=== PATIENT | female | born 1945 | race Caucasian/White ===

== ENCOUNTER → 2018-04-07 09:17 | Outpatient (CLI) | payer MEDICARE, OTHER, SELFPAY ==
--- NOTE | 2018-04-07 | DI.MG.S_ITS ---
BILATERAL DIGITAL SCREENING MAMMOGRAM 3D/2D WITH CAD: 04/07/2018 CLINICAL: Routine screening. Comparison is made to exams dated: 02/05/2017 mammogram, 02/02/2016 mammogram, and 01/31/2015 mammogram - [facility]. The tissue of both breasts is heterogeneously dense. This may lower the sensitivity of mammography. Current study was also evaluated with a Computer Aided Detection (CAD) system. There are benign post operative findings in the right breast. There also are benign calcifications in the left breast. No significant masses, calcifications, or other findings are seen in either breast. There has been no significant interval change. IMPRESSION: There is no mammographic evidence of malignancy. A 1 year screening mammogram is recommended. This exam was interpreted at Station ID: [id number]. NOTE: For mammograms, a report in lay terms will be sent to the patient. Approximately 15% of breast malignancies will not be visualized mammographically. In the management of a palpable breast mass, a negative mammogram must not discourage biopsy of a clinically suspicious lesion. Electronically Signed By: Mich napoles/ani:04/07/2018 09:56:55 letter sent: Normal Exam ACR BI-RADS Category 2: Benign Finding(s) 3342F
== END ==
PROVIDERS: PCP Family Medicine; Visit Provider Family Medicine
DX: Z12.31 Encounter for screening mammogram for malignant neoplasm of breast (principal)
CPT/HCPCS: 77063; 77067

== ENCOUNTER → 2018-04-16 16:18 | Outpatient (CLI) | payer MEDICARE, OTHER, SELFPAY ==
--- NOTE | 2018-04-16 16:21 | DI.RAD.S_ITS ---
PROCEDURE: XR SHOULDER LT MIN 2V INDICATIONS: shoulder pain decrase rang of motion TECHNIQUE: 3 views of the shoulder were acquired. COMPARISON: [facility], , UP EXT WITH, 07/01/2011, 10:04. [facility], , SHOULDER INJECTION FOR MR/CT, 07/01/2011, 9:41. FINDINGS: Bones: No fractures or dislocations. No suspicious bony lesions. Mild acromioclavicular joint degeneration. Visualized ribs appear intact. Soft tissues: There is a soft tissue calcification underneath the acromion over humeral head. IMPRESSION: 1. Mild degenerative joint disease. 2. There is soft tissue calcification suggesting calcific tendinitis. Dictated by: Renny Blount M.D. on 04/16/2018 at 17:06 Approved by: Renny Blount M.D. on 04/16/2018 at 17:09
== END ==
PROVIDERS: PCP Family Medicine; Visit Provider Family Medicine
DX: M25.512 Pain in left shoulder (principal); M19.012 Primary osteoarthritis, left shoulder
CPT/HCPCS: 73030

== ENCOUNTER → 2018-07-31 07:23 | Outpatient (CLI) | payer MEDICARE, OTHER, SELFPAY ==
[2018-07-31 08:44] LABS: Add Manual Diff / Slide Review NO; Basophils Absolute Auto 0 /uL (0-100); Basophils Percent Auto 0.9 % (0-2); Eosinophils Absolute Auto 100 /uL (0-450); Eosinophils Percent Auto 2.4 % (2-4); Hematocrit 42.7 % (36-46); Hemoglobin 14.4 g/dL (12.0-16.0); Lymphocytes Absolute Auto 1600 /uL (1100-4500); Lymphocytes Percent Auto 33.3 % (25-40); Mean Corpuscular HGB Conc 33.7 % (30-36); Mean Corpuscular Hemoglobin 32.4 PG (26-34); Mean Corpuscular Volume 96.1 fL (80-100); Monocytes Absolute Auto 400 /uL (0-900); Monocytes Percent Auto 8.4 % (3-14); Neutrophils Absolute Auto 2700 /uL (1500-7000); Platelet Count 207 X10^3/uL (150-400); Red Blood Cell Count 4.45 X10^6/uL (4.0-5.2); Red Cell Distribution Width 12.9 % (11.6-14.8); White Blood Cell Count 4.9 X10^3/uL (4.5-11.0)
[2018-07-31 08:49] LABS: Alanine Aminotransferase 15 IU/L (9-52); Albumin 4.4 g/dL (3.5-5.0); Albumin Globulin Ratio 1.5 (1.0-2.8); Alkaline Phosphatase 75 U/L (38-126); Aspartate Aminotransferase 29 IU/L (14-36); BUN Creatinine Ratio 21.4 (6-22); Bilirubin Total 0.4 mg/dL (0.2-1.3); Blood Urea Nitrogen 15 mg/dL (7-17); Calcium 9.7 mg/dL (8.4-10.2); Carbon Dioxide 33 mmol/L (22-32); Chloride 102 mmol/L (98-107); Cholesterol 194 mg/dL (140-199); Estimated Glomerular Filt Rate > 60.0 mL/min (>60); Glucose 100 mg/dL (80-110); HDL Cholesterol 56 mg/dL (40-60); HEMOLYSIS < 15 (0-50); LDL Cholesterol Calculated 107 mg/dL (<100); Potassium 4.5 mmol/L (3.4-5.1); Sodium 141 mmol/L (137-145); Total Protein 7.4 g/dL (6.3-8.2); Triglycerides 153 mg/dL (35-150)
[2018-07-31 09:15] LABS: TSH w/ Reflex to FT4 2.48 uIU/mL (0.47-4.68)
== END ==
PROVIDERS: PCP Family Medicine; Visit Provider Nurse Practitioner
DX: Z00.00 Encounter for general adult medical examination without abnormal findings (principal)
CPT/HCPCS: 36415; 80053; 80061; 84443; 85025

== ENCOUNTER → 2018-12-05 13:30 | Outpatient (CLI) | payer MEDICARE, OTHER, SELFPAY ==
--- NOTE | 2018-12-05 | DI.MRI.S_ITS ---
PROCEDURE: MR KNEE LT WO CON INDICATIONS: osteoarthritis TECHNIQUE: Noncontrast sagittal PD fast spin echo and T2 fast spin echo with fat saturation, sagittal 3-D FLASH with fat saturation; coronal T1 spin echo and PD fast spin echo with fat saturation, and axial PD fast spin echo with fat saturation through the knee. COMPARISON: [facility], MR, KNEE WITHOUT CONTRAST, 08/23/2013, 10:47. [facility], CR, XR KNEE ARTHRITIC SERIES BI, 09/01/2018, 9:45. FINDINGS: Image quality: Excellent. Menisci: Mild ill-defined T2 signal elevation within the medial meniscal body is present, demonstrating no significant articular surface extension. The medial and lateral menisci demonstrate otherwise normal morphology and internal signal. The meniscal root ligaments appear intact. Cruciate ligaments: The anterior and posterior cruciate ligaments appear intact. Medial structures: The medial collateral ligament appears intact. Visualized portions of the pes anserinus tendons appear normal. No abnormal bursal fluid. Lateral structures: The lateral collateral ligament, long and short heads of the biceps femoris tendon appear intact. The popliteus tendon appears normal. Iliotibial band appears normal. Anterior structures: The quadriceps and patellar tendons appear intact. Lateral patellar subluxation is present. No femoral trochlear dysplasia or ventral trochlear prominence. Mild edema within the superolateral aspect of the infrapatellar fat pad. Bones and cartilage: No bone marrow contusions or fractures. Mild tricompartmental para-articular osteophyte formation. Articular surface irregularity involves the lateral patellar facet and lateral femoral trochlea, new since the prior examination. Severe articular cartilage loss overlies the mid weightbearing aspect of the medial femoral condyle. Moderate diffuse articular cartilage loss overlies the weightbearing aspect of the medial tibial plateau. Severe articular cartilage loss overlies the lateral patellar facet and lateral femoral trochlea. Joint space: There is a moderate knee joint effusion and a small Purvis's cyst. Multiple small intra-articular loose bodies, predominantly within the lateral compartment are present. There is a moderate proximal tibial-fibular joint effusion. Normal appearing synovial plicae are incidentally noted. IMPRESSION: 1. 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 New articular surface irregularity involving the lateral patellofemoral compartment. 2. Findings consistent with lateral patellofemoral friction syndrome the appropriate clinical setting. 3. No evidence of meniscal tear nor cruciate ligament injury. 4. Knee joint effusion and Purvis's cyst. Multiple small intra-articular loose bodies. Dictated by: Feliberto Ríos M.D. on 12/07/2018 at 14:50 Approved by: Feliberto Ríos M.D. on 12/07/2018 at 14:54
== END ==
PROVIDERS: PCP Family Medicine; Visit Provider Orthopaedic Surgery
DX: M17.12 Unilateral primary osteoarthritis, left knee (principal); M25.462 Effusion, left knee; M71.22 Synovial cyst of popliteal space [Baker], left knee; M23.42 Loose body in knee, left knee
CPT/HCPCS: 73721

== ENCOUNTER → 2019-05-05 10:39 | Outpatient (CLI) | payer MEDICARE, OTHER, SELFPAY ==
--- NOTE | 2019-05-05 | DI.MG.S_ITS ---
BILATERAL DIGITAL SCREENING MAMMOGRAM 3D/2D WITH CAD: 05/05/2019 CLINICAL: Routine screening. Comparison is made to exams dated: 04/07/2018 mammogram, 02/05/2017 mammogram, and 02/02/2016 mammogram - [facility]. The tissue of both breasts is heterogeneously dense. This may lower the sensitivity of mammography. Current study was also evaluated with a Computer Aided Detection (CAD) system. There are benign calcifications in the left breast. There also are benign post operative findings in the right breast. No significant masses, calcifications, or other findings are seen in either breast. There has been no significant interval change. IMPRESSION: There is no mammographic evidence of malignancy. A 1 year screening mammogram is recommended. This exam was interpreted at Station ID: [id number]. NOTE: For mammograms, a report in lay terms will be sent to the patient. Approximately 15% of breast malignancies will not be visualized mammographically. In the management of a palpable breast mass, a negative mammogram must not discourage biopsy of a clinically suspicious lesion. Electronically Signed By: Mich napoles/ani:05/05/2019 12:55:22 letter sent: Normal Exam ACR BI-RADS Category 2: Benign Finding(s) 3342F
== END ==
PROVIDERS: PCP Family Medicine; Referring Provider Nurse Practitioner; Visit Provider Family Medicine
DX: Z12.31 Encounter for screening mammogram for malignant neoplasm of breast (principal)
CPT/HCPCS: 77063; 77067

== ENCOUNTER → 2019-11-23 07:29 | Outpatient (CLI) | payer MEDICARE, OTHER, SELFPAY ==
[2019-11-23 09:07] LABS: Alanine Aminotransferase 15 IU/L (<35); Albumin 4.1 g/dL (3.5-5.0); Albumin Globulin Ratio 1.6 (1.0-2.8); Alkaline Phosphatase 81 U/L (38-126); Aspartate Aminotransferase 31 IU/L (14-36); BUN Creatinine Ratio 18.1 (6-22); Bilirubin Total 0.4 mg/dL (0.2-1.3); Blood Urea Nitrogen 13 mg/dL (7-17); Calcium 9.5 mg/dL (8.4-10.2); Carbon Dioxide 31 mmol/L (22-32); Chloride 103 mmol/L (98-107); Cholesterol 182 mg/dL (140-199); Estimated Glomerular Filt Rate > 60.0 mL/min (>60); Globulin 2.6 g/dL (1.7-4.1); Glucose 90 mg/dL (80-110); HDL Cholesterol 69 mg/dL (40-60); HEMOLYSIS < 15 (0-50); LDL Cholesterol Calculated 92 mg/dL (<100); Potassium 5.2 mmol/L (3.4-5.1); Sodium 137 mmol/L (137-145); Total Protein 6.7 g/dL (6.3-8.2); Triglycerides 105 mg/dL (35-150)
[2019-11-23 09:23] LABS: Free T4, Direct Thyroxine 0.84 ng/dL (0.78-2.19)
[2019-11-23 09:37] LABS: Thyroid Stimulating Hormone 2.61 uIU/mL (0.47-4.68)
[2019-11-24 08:43] LABS: Fecal Immunochemical Test Negative (Negative)
== END ==
PROVIDERS: PCP Family Medicine; Referring Provider Nurse Practitioner; Visit Provider Nurse Practitioner
DX: E78.5 Hyperlipidemia, unspecified (principal); F32.9 Major depressive disorder, single episode, unspecified; G47.00 Insomnia, unspecified; Z79.899 Other long term (current) drug therapy; Z12.11 Encounter for screening for malignant neoplasm of colon
CPT/HCPCS: 36415; 80053; 80061; 82274; 84439; 84443

== ENCOUNTER → 2019-11-30 09:29 | Outpatient (CLI) | payer MEDICARE, OTHER, SELFPAY | PROVIDERS: PCP Family Medicine; Referring Provider Nurse Practitioner; Visit Provider Nurse Practitioner | DX: M85.851 Other specified disorders of bone density and structure, right thigh (principal); Z78.0 Asymptomatic menopausal state; Z90.722 Acquired absence of ovaries, bilateral | CPT/HCPCS: 77080 ==

== ENCOUNTER → 2020-05-08 10:01 | Outpatient (CLI) | payer MEDICARE, OTHER, SELFPAY ==
--- NOTE | 2020-05-08 | DI.MG.S_ITS ---
BILATERAL DIGITAL SCREENING MAMMOGRAM 3D/2D WITH CAD: 05/08/2020 CLINICAL: Routine screening. Comparison is made to exams dated: 05/05/2019 mammogram, 04/07/2018 mammogram, and 02/05/2017 mammogram - [facility]. The tissue of both breasts is heterogeneously dense. This may lower the sensitivity of mammography. Current study was also evaluated with a Computer Aided Detection (CAD) system. There are benign calcifications in the left breast. There also are benign post operative findings in the right breast. No significant masses, calcifications, or other findings are seen in either breast. There has been no significant interval change. IMPRESSION: BENIGN There is no mammographic evidence of malignancy. A 1 year screening mammogram is recommended. This exam was interpreted at Station ID: [id number]. NOTE: For mammograms, a report in lay terms will be sent to the patient. Approximately 15% of breast malignancies will not be visualized mammographically. In the management of a palpable breast mass, a negative mammogram must not discourage biopsy of a clinically suspicious lesion. Electronically Signed By: Mich napoles/ani:05/08/2020 11:04:53 copy to: WOOD [facility]AN letter sent: Normal Exam ACR BI-RADS Category 2: Benign Finding(s) 3342F
== END ==
PROVIDERS: PCP Family Medicine; Referring Provider Family Medicine; Visit Provider Family Medicine
DX: Z12.31 Encounter for screening mammogram for malignant neoplasm of breast (principal)
CPT/HCPCS: 77063; 77067

== ENCOUNTER → 2021-05-11 08:09 | Outpatient (CLI) | payer MEDICARE, OTHER, SELFPAY ==
--- NOTE | 2021-05-11 | DI.MG.S_ITS ---
BILATERAL DIGITAL SCREENING MAMMOGRAM 3D/2D WITH CAD: 05/11/2021 CLINICAL: Routine screening. Comparison is made to exams dated: 05/08/2020 mammogram, 05/05/2019 mammogram, and 04/07/2018 mammogram - [facility]. The tissue of both breasts is heterogeneously dense. This may lower the sensitivity of mammography. Current study was also evaluated with a Computer Aided Detection (CAD) system. There is a round asymmetry with an indistinct margin in the left breast middle depth superior region seen on the mediolateral oblique view only. No other significant masses, calcifications, or other findings are seen in either breast. IMPRESSION: INCOMPLETE: NEEDS ADDITIONAL IMAGING EVALUATION The round asymmetry in the left breast is indeterminate. A diagnostic mammogram and ultrasound is recommended. This exam was interpreted at Station ID: [id number]. NOTE: For mammograms, a report in lay terms will be sent to the patient. Approximately 15% of breast malignancies will not be visualized mammographically. In the management of a palpable breast mass, a negative mammogram must not discourage biopsy of a clinically suspicious lesion. Electronically Signed By: Jitendra Mcelroy acr/:05/11/2021 08:54:50 copy to: WOOD VAN letter sent: Additional Imaging Needed ACR BI-RADS Category 0: Incomplete 3340F
== END ==
PROVIDERS: PCP Family Medicine; Referring Provider Family Medicine; Visit Provider Family Medicine
DX: Z12.31 Encounter for screening mammogram for malignant neoplasm of breast (principal)
CPT/HCPCS: 77063; 77067

== ENCOUNTER → 2021-06-19 10:20 | Outpatient (CLI) | payer MEDICARE, OTHER, SELFPAY ==
[2021-06-19 12:46] LABS: Alanine Aminotransferase 14 IU/L (<35); Albumin 4.3 g/dL (3.5-5.0); Albumin Globulin Ratio 1.6 (1.0-2.8); Alkaline Phosphatase 80 U/L (38-126); Aspartate Aminotransferase 30 IU/L (14-36); BUN Creatinine Ratio 21.9 (6-22); Bilirubin Total 0.4 mg/dL (0.2-1.3); Blood Urea Nitrogen 16 mg/dL (7-17); Calcium 9.3 mg/dL (8.4-10.2); Carbon Dioxide 33 mmol/L (22-32); Chloride 103 mmol/L (98-107); Cholesterol 172 mg/dL (140-199); Estimated Glomerular Filt Rate > 60 mL/min (>60); Globulin 2.7 g/dL (1.7-4.1); Glucose 95 mg/dL (80-110); HDL Cholesterol 57 mg/dL (40-60); HEMOLYSIS < 15 (0-50); LDL Cholesterol Calculated 98 mg/dL (<100); Potassium 4.3 mmol/L (3.4-5.1); Sodium 141 mmol/L (137-145); Triglycerides 83 mg/dL (35-150)
[2021-06-19 13:18] LABS: Free T3, Triiodothyronine Free 3.33 pg/mL (2.77-5.27); Free T4, Direct Thyroxine 1.02 ng/dL (0.78-2.19)
[2021-06-19 13:32] LABS: Thyroid Stimulating Hormone 1.15 uIU/mL (0.47-4.68)
[2021-06-20 20:43] LABS: Hep C Virus Ab w/Reflex Quant NEGATIVE s/c (NEGATIVE)
== END ==
PROVIDERS: PCP Family Medicine; Referring Provider Nurse Practitioner; Visit Provider Nurse Practitioner
DX: E78.5 Hyperlipidemia, unspecified (principal); F32.9 Major depressive disorder, single episode, unspecified; G47.00 Insomnia, unspecified; Z79.899 Other long term (current) drug therapy; Z11.59 Encounter for screening for other viral diseases
CPT/HCPCS: 36415; 80053; 80061; 84439; 84443; 84481; 86803

== ENCOUNTER → 2021-08-09 10:38 | Outpatient (CLI) | payer MEDICARE, OTHER, SELFPAY | PROVIDERS: PCP Family Medicine; Referring Provider Nurse Practitioner; Visit Provider Nurse Practitioner | DX: Z13.820 Encounter for screening for osteoporosis (principal); Z78.0 Asymptomatic menopausal state; M85.851 Other specified disorders of bone density and structure, right thigh; M85.852 Other specified disorders of bone density and structure, left thigh | CPT/HCPCS: 77080 ==

== ENCOUNTER → 2021-11-21 10:12 | Outpatient (CLI) | payer MEDICARE, OTHER, SELFPAY ==
--- NOTE | 2021-11-21 | DI.MG.S_ITS ---
UNILATERAL LEFT DIGITAL DIAGNOSTIC MAMMOGRAM 3D/2D SHORT-TERM FOLLOW-UP: 11/21/2021 CLINICAL: Short term follow up for the left breast. Comparison is made to exams dated: 05/22/2021 ultrasound, 05/22/2021 mammogram - [facility], 05/11/2021 mammogram, 05/08/2020 mammogram, and 05/05/2019 mammogram - [facility]. The left breast is heterogeneously dense, which may obscure small masses (category c / 51-75% glandular tissue). There is a possible asymmetry in the left breast middle depth superior region seen on the mediolateral oblique view only. This is not seen in additional views. This was not seen on the prior ultrasound. No other significant masses or calcifications are seen in the breast. IMPRESSION: INCOMPLETE: NEEDS ADDITIONAL IMAGING EVALUATION There is no mammographic evidence of malignancy. Possible asymmetry in the left breast is no longer seen. This is consistent with fibroglandular tissue. Return to screening mammogram is recommended. Last bilateral mammogram 05/22/2021. Based on the Tyrer Cuzick model (a risk assessment model) the patient's lifetime risk is 4.2% and her 10 year risk is 0.0%. According to the ACR, ACS, and NCCN guidelines, an annual breast MRI exam along with mammogram is recommended if the patient's lifetime risk is 20% or greater. This exam was interpreted at Station ID: [id number]. NOTE: For mammograms, a report in lay terms will be sent to the patient. Approximately 15% of breast malignancies will not be visualized mammographically. In the management of a palpable breast mass, a negative mammogram must not discourage biopsy of a clinically suspicious lesion. Electronically Signed By: Leandro Blanco M.D. [facility] [place]/:11/21/2021 10:55:03 Entry: - 11/22/2021 10:09:33 copy to: WOOD VAN letter sent: Normal Exam ACR BI-RADS Category 0: Incomplete 3340F
== END ==
PROVIDERS: PCP Family Medicine; Referring Provider Nurse Practitioner; Visit Provider Nurse Practitioner
DX: R92.8 Other abnormal and inconclusive findings on diagnostic imaging of breast (principal)
CPT/HCPCS: 77065; G0279

== ENCOUNTER → 2022-05-13 08:20 | Outpatient (CLI) | payer MEDICARE, OTHER, SELFPAY ==
--- NOTE | 2022-05-13 08:21 | DI.MG.S_ITS ---
BILATERAL DIGITAL SCREENING MAMMOGRAM 3D/2D WITH CAD: 05/13/2022 CLINICAL: Routine screening. Comparison is made to exams dated: 11/21/2021 mammogram - [facility], 05/22/2021 mammogram - [facility], 05/11/2021 mammogram, 05/08/2020 mammogram, and 05/05/2019 mammogram - [facility]. Both breasts are heterogeneously dense, which may obscure small masses (category c / 51-75% glandular tissue). Current study was also evaluated with a Computer Aided Detection (CAD) system. No significant masses, calcifications, or other findings are seen in either breast. There has been no significant interval change. IMPRESSION: NEGATIVE There is no mammographic evidence of malignancy. A 1 year screening mammogram is recommended. Based on the Tyrer Cuzick model (a risk assessment model) the patient's lifetime risk is 3.1% and her 10 year risk is 0.0%. According to the ACR, ACS, and NCCN guidelines, an annual breast MRI exam along with mammogram is recommended if the patient's lifetime risk is 20% or greater. This exam was interpreted at Station ID: [id number]. NOTE: For mammograms, a report in lay terms will be sent to the patient. Approximately 15% of breast malignancies will not be visualized mammographically. In the management of a palpable breast mass, a negative mammogram must not discourage biopsy of a clinically suspicious lesion. Electronically Signed By: Melania murry/ani:05/13/2022 16:55:32 copy to: WOOD [facility]AN letter sent: Normal Exam ACR BI-RADS Category 1: Negative 3341F
== END ==
PROVIDERS: PCP Family Medicine; Referring Provider Family Medicine; Visit Provider Family Medicine
DX: Z12.31 Encounter for screening mammogram for malignant neoplasm of breast (principal)
CPT/HCPCS: 77063; 77067

== ENCOUNTER → 2022-06-28 07:35 | Outpatient (CLI) | payer MEDICARE, OTHER, SELFPAY ==
[2022-06-28 08:25] LABS: Add Manual Diff / Slide Review NO; Basophils Absolute Auto 0 /uL (0-100); Basophils Percent Auto 0.9 % (0-2); Eosinophils Absolute Auto 100 /uL (0-450); Eosinophils Percent Auto 2.1 % (2-4); Hematocrit 40.2 % (36-46); Hemoglobin 13.7 g/dL (12.0-16.0); Lymphocytes Absolute Auto 1500 /uL (1100-4500); Lymphocytes Percent Auto 32.1 % (25-40); Mean Corpuscular HGB Conc 34.1 % (30-36); Mean Corpuscular Hemoglobin 32.4 PG (26-34); Mean Corpuscular Volume 95.1 fL (80-100); Monocytes Absolute Auto 400 /uL (0-900); Monocytes Percent Auto 8.5 % (3-14); Neutrophils Absolute Auto 2700 /uL (1500-7000); Neutrophils Percent Auto 56.4 % (50-75); Platelet Count 217 X10^3/uL (150-400); Red Blood Cell Count 4.23 X10^6/uL (4.0-5.2); White Blood Cell Count 4.7 X10^3/uL (4.5-11.0)
[2022-06-28 08:41] LABS: Alanine Aminotransferase 15 IU/L (<35); Albumin 4.3 g/dL (3.5-5.0); Albumin Globulin Ratio 1.5 (1.0-2.8); Alkaline Phosphatase 81 U/L (38-126); Aspartate Aminotransferase 27 IU/L (14-36); BUN Creatinine Ratio 25.7 (6-22); Bilirubin Total 0.5 mg/dL (0.2-1.3); Blood Urea Nitrogen 18 mg/dL (7-17); Calcium 9.3 mg/dL (8.4-10.2); Carbon Dioxide 33 mmol/L (22-32); Chloride 102 mmol/L (98-107); Cholesterol 183 mg/dL (140-199); Estimated Glomerular Filt Rate > 60 mL/min (>60); Globulin 2.9 g/dL (1.7-4.1); Glucose 96 mg/dL (80-110); HDL Cholesterol 62 mg/dL (40-60); HEMOLYSIS < 15 (0-50); LDL Cholesterol Calculated 102 mg/dL (<100); Potassium 4.4 mmol/L (3.4-5.1); Sodium 140 mmol/L (137-145); Total Protein 7.2 g/dL (6.3-8.2); Triglycerides 95 mg/dL (35-150)
[2022-06-28 09:18] LABS: TSH w/ Reflex to FT4 1.99 uIU/mL (0.47-4.68)
== END ==
PROVIDERS: PCP Family Medicine; Referring Provider Family Medicine; Visit Provider Family Medicine
DX: E78.5 Hyperlipidemia, unspecified (principal); G62.9 Polyneuropathy, unspecified; M19.90 Unspecified osteoarthritis, unspecified site
CPT/HCPCS: 36415; 80053; 80061; 84443; 85025

== ENCOUNTER 2022-08-14 11:54 | Emergency (ER) | payer MEDICARE, OTHER, SELFPAY ==
--- NOTE | 2022-08-14 12:01 | ED_ITS ---
HPI - Extremity Injury (Lower) <Jose Cruz Looney PA-C - Last Filed: 08/14/22 16:44> General Chief Complaint: Extremity Injury, Lower Stated Complaint: Fall, L ankle pain Time Seen by Provider: 08/14/22 11:57 History of Present Illness HPI Narrative: This is a 76-year-old female presents emergency department due to left ankle pain after stepping into a pothole just prior to arrival. She denies any injuries to her knee or foot. She would not hit her head or lose conscious. She denies any numbness in the foot or ankle in only reports mild decreased range of motion secondary to pain. Related Data Home Medications Medication Instructions Recorded Confirmed krill 1,000 mg-omega-3 170 mg-dha 1 cap PO DAILY 06/19/21 06/27/22 50 mg-epa 80 hi-mrtzcv-mprqs capsule (krill oil) cyclosporine 0.05 % eye drops in a drp EYE-BOTH BID 06/27/22 06/27/22 dropperette fluorouracil 5 % topical cream 1 applic topical BID 06/27/22 06/27/22 triamcinolone acetonide 0.1 % 1 applic topical DAILY PRN dry skin 06/27/22 06/27/22 topical cream Previous Rx's Medication Instructions Recorded fluticasone propionate 50 1 spray intranasal BIDP PRN 12/31/18 mcg/actuation nasal allergy symptoms #54.6 mL spray,suspension (Flonase Allergy Relief) cholecalciferol (vitamin D3) 50 50 mcg PO DAILY #90 caps 11/22/19 mcg (2,000 unit) capsule diphenhydramine 25 2 tab PO BEDTIME PRN sleep #60 tabs 11/22/19 mg-acetaminophen 500 mg tablet (Tylenol PM Extra Strength) montelukast 10 mg tablet 10 mg PO DAILY #90 tabs 06/19/21 levomefolate Ca 3 mg-B6 35 See Rx Instructions .Route 05/13/22 mg-meB12 2 mg-algal oil 90.314 mg .COMPLEX #180 caps capsule (Metanx (algal oil)) acyclovir 400 mg tablet See Rx Instructions .Route 06/18/22 .COMPLEX #90 tabs bupropion HCl 300 mg 24 hr tablet, See Rx Instructions .Route 06/18/22 extended release .COMPLEX #90 tabs atorvastatin 20 mg tablet (Lipitor) 20 mg PO BEDTIME #90 tabs 06/27/22 oxycodone 5 mg capsule 5 mg PO Q8H PRN pain 7 days #20 08/14/22 caps Allergies Allergy/AdvReac Type Severity Reaction Status Date / Time doxycycline [DOXYCYCLINE] Allergy Unknown Nausea Verified 08/14/22 12:09 OPTHAMIC KAUR SPORAN DROPS Allergy Mild Uncoded 06/27/22 08:21 Review of Systems <Jose Cruz Looney PA-C - Last Filed: 08/14/22 16:44> Review of Systems Narrative: GENERAL: Denies chills, fatigue, malaise, fever, sweats. HEENT: Denies sinus pain, ear pain, sore throat, difficulty swallowing, dizziness. RESPIRATORY: Denies dyspnea, cough, wheezing, hemoptysis, sputum. CARDIOVASCULAR: Denies chest pain, palpitations, orthopnea, edema, GASTROINTESTINAL: Denies nausea, vomiting, abdominal pain, diarrhea, constipation, melena. : Denies dysuria, frequency, incontinence, hematuria, urinary retention. MUSCULOSKELETAL: Reports left ankle pain SKIN: Denies rash, skin lesions, or other NEUROLOGIC: Denies weakness, headache, numbness, change in speech, confusion, seizures, incoordination. PSYCHIATRIC: No concerning psychosocial issues. 12 point review of systems is negative except for those stated above Patient History <Joes Cruz Looney PA-C - Last Filed: 08/14/22 16:44> Medical History (Updated 08/14/22 @ 12:26 by Jose Cruz Looney PA-C) Actinic keratosis (~1985) Chicken pox (~1949) Depression (01/02/11) Depression Eczema (~1979) Foot pain (~2004) Fracture (~2004) Hay fever (~1958) Hearing loss (~2013) Hepatitis (~1964) Herpes Hyperlipidemia (11/22/13) Hyperlipidemia (~2004) Insomnia (01/02/11) Lumbar spine pain Measles (~1951) Mumps (~1954) Neuropathy Obstructive sleep apnea syndrome (08/08/15) Osteoarthritis (11/22/13) Osteoarthritis (~2009) Osteopenia after menopause Peripheral neuropathy (11/22/13) Recurrent sinusitis (~1989) Shoulder pain (~2008) Skin cancer (~2004) Surgical History Anesthesia Status post hysterectomy with oophorectomy (~1975) Status post tonsillectomy and adenoidectomy (~1966) Family History Brother Age: 75 Neuropathic pain Father Stroke Hyperlipidemia CAD (coronary artery disease) Aortic valve replaced Grandfather Rheumatoid arthritis Mother No problems noted. Social History marital status: Smoking Status: Never smoker alcohol intake: current Smoking Status: Never smoker Exam <PASTORA Howard Last Filed: 08/14/22 16:44> Narrative Exam Narrative: GENERAL: Well-developed patient, in mild distress. HEAD: Atraumatic. Normocephalic. NECK: Trachea midline. Non tender EXTREMITIES: Mild tenderness to palpation just superior to the lateral malleolus of the left ankle. Neurovascularly intact throughout. 2+ dorsalis pedis pulse. BACK: Nontender without deformity or crepitance. No flank tenderness. NEURO: AOx3. SKIN: No rash or erythema of visible areas Initial Vital Signs Initial Vital Signs: Vital Signs Temperature 98.3 F 08/14/22 12:07 Pulse Rate 79 08/14/22 12:07 Respiratory Rate 16 08/14/22 12:07 Blood Pressure 146/72 H 08/14/22 12:07 Pulse Oximetry 98 08/14/22 12:07 Oxygen Delivery Method Room Air 08/14/22 12:07 <Danny Bower DO - Last Filed: 08/16/22 09:45> Initial Vital Signs Initial Vital Signs: Vital Signs Temperature 98.3 F 08/14/22 12:07 Pulse Rate 79 08/14/22 12:07 Respiratory Rate 16 08/14/22 12:07 Blood Pressure 146/72 H 08/14/22 12:07 Pulse Oximetry 98 08/14/22 12:07 Oxygen Delivery Method Room Air 08/14/22 12:07 Course <PASTORA Howard Last Filed: 08/14/22 16:44> Orders Ordered: ED Orders 08/14/22 12:06 XR ankle LT min 3V Stat Vital Signs Vital signs: Vital Signs - 8 hr 08/14/22 12:07 Temperature 98.3 F Pulse Rate 79 Respiratory Rate 16 Blood Pressure 146/72 H Pulse Oximetry 98 Oxygen Delivery Method Room Air <DO Chari Cordero Last Filed: 08/16/22 09:45> Orders Ordered: ED Orders 08/14/22 12:06 XR ankle LT min 3V Stat Vital Signs Vital signs: Vital Signs - 8 hr 08/14/22 12:07 Temperature 98.3 F Pulse Rate 79 Respiratory Rate 16 Blood Pressure 146/72 H Pulse Oximetry 98 Oxygen Delivery Method Room Air MDM - Extremity Injury (Lower) <Jose Cruz Looney PA-C - Last Filed: 08/14/22 16:44> Imaging Data Extremity x-ray #1: Radiologist's Impression: [address] [address] XRay Report Signed Patient: Rebeca Hopson MR#: [id number] : 1945 Acct:[id number] Age/Sex: 76 / F Date of Service: 08/14/22 Loc: ED Accession Number: [id number] ?? Procedure: XR ankle LT min 3V Ordering Provider: Jose Cruz Looney P.A-C PROCEDURE:? XR ANKLE LT MIN 3V ? INDICATIONS:? L ankle pain ? TECHNIQUE:? 3 views of the ankle were acquired.? ? COMPARISON:? None. ? FINDINGS:? ? Bones:? Oblique fracture of the distal left fibula at the level of the lateral malleolus and syndesmosis.? Overall, the ankle mortise appears intact. Remainder of the visualized osseous structures appear intact.? No suspicious osseous lesions. ? Soft tissues:? No tibiotalar joint effusion.? Achilles tendon appears normal.? Moderate lateral malleolar soft tissue edema. ? ? IMPRESSION:? Lateral malleolar fracture near the level of the distal tibial fibular syndesmosis without evidence of abnormal widening of the ankle mortise. ? Dictated by: Mich Gordon M.D. on 08/14/2022 at 12:43 ? ? Approved by: Mich Gordon M.D. on 08/14/2022 at 12:45 ? MDM Narrative Medical decision making narrative: MDM * differential diagnosis includes but not limited to left ankle fracture, soft tissue injury, neurovascular injury * Prior records reviewed: Patient has not been here for similar complaints in the past. * My lab interpretation: None * My imgaing interpretation: X-ray showed a fracture of the lateral malleolus. * Clinical Decision Rules/Scores evaluated: None * Independent discussions with: None ED Course: This is a 76-year-old presents emergency department due stepping into a pothole and tripping and falling and injuring her left ankle. X-ray showed the fracture as noted above. She was neurovascularly intact throughout. Patient will be placed in a posterior short-leg splint and advised to follow up with Orthopedics for further management. Advised to be nonweightbearing. Shared Decision Making: Discussed plan with patient who is comfortable with the plan. Social Considerations: None Disposition: Discharged to home Discharge Plan Departure Patient Disposition: Home Clinical Impression: Ankle fracture Instructions: DI for Ankle Fracture Activity Restrictions/Additional Instructions: Thank you for coming to the [facility] Emergency Department today. Your x- ray shows a fracture to her left ankle. It placed in the splint and recommended follow up with the Orthopedics who is attached information is attached. I recommend Tylenol as needed for the pain but you may use the oxycodone prescribed as needed for any breakthrough pain. Please call the orthopedist tomorrow to schedule an appointment. Please remain non weight bearing until you see the orthopedist. I hope you feel better soon. Prescriptions: New oxycodone 5 mg capsule 5 mg PO Q8H PRN (Reason: pain) 7 Days Qty: 20 0RF No Action cyclosporine 0.05 % dropperette EYE-BOTH BID fluorouracil 5 % cream 1 applic topical BID Rx Instructions: apply to hands and arms as needed triamcinolone acetonide 0.1 % cream 1 applic topical DAILY PRN (Reason: dry skin) atorvastatin [Lipitor] 20 mg tablet 20 mg PO BEDTIME Qty: 90 3RF fluticasone propionate [Flonase Allergy Relief] 50 mcg/actuation spray,suspension 1 spray intranasal BIDP PRN (Reason: allergy symptoms) Qty: 54.6 1RF aabdddowz-[id number]-algal oil [Metanx (algal oil)] 3 mg-35 mg-2 mg -90.314 mg capsule See Rx Instructions .ROUTE .COMPLEX Qty: 180 0RF Dose Instruction: TAKE 1 CAPSULE BY MOUTH TWO TIMES A DAY Rx Instructions: TAKE 1 CAPSULE BY MOUTH TWO TIMES A DAY bupropion HCl 300 mg tablet extended release 24 hr See Rx Instructions .ROUTE .COMPLEX Qty: 90 1RF Dose Instruction: TAKE 1 TABLET DAILY Rx Instructions: TAKE 1 TABLET DAILY acyclovir 400 mg tablet See Rx Instructions .ROUTE .COMPLEX Qty: 90 3RF Dose Instruction: TAKE 1 TABLET DAILY Rx Instructions: TAKE 1 TABLET DAILY cinsu-ng-0-pst-nni-xjxhpeu-ast [krill oil] 1,[id number] mg capsule 1 cap PO DAILY Patient Comments: 1600mg daily montelukast 10 mg tablet 10 mg PO DAILY Qty: 90 3RF diphenhydramine-acetaminophen [Tylenol PM Extra Strength] 25-500 mg tablet 2 tab PO BEDTIME PRN (Reason: sleep) Qty: 60 0RF cholecalciferol (vitamin D3) 50 mcg (2,000 unit) capsule 50 mcg PO DAILY Qty: 90 0RF Referrals: Enio Manning MD [Primary Care Provider] - Davy Mondragon MD [Physician] - (Follow up lateral malleolus fracture) Stand Alone Forms: Patient Portal/API <Danny Bower DO - Last Filed: 08/16/22 09:45> Cosign ED Attending Nevinature Attestation: I was immediately available in the department for consultation. Documentation has been reviewed. I agree with assessment and plan.
--- NOTE | 2022-08-14 12:06 | DI.RAD.S_ITS ---
PROCEDURE: XR ANKLE LT MIN 3V INDICATIONS: L ankle pain TECHNIQUE: 3 views of the ankle were acquired. COMPARISON: None. FINDINGS: Bones: Oblique fracture of the distal left fibula at the level of the lateral malleolus and syndesmosis. Overall, the ankle mortise appears intact. Remainder of the visualized osseous structures appear intact. No suspicious osseous lesions. Soft tissues: No tibiotalar joint effusion. Achilles tendon appears normal. Moderate lateral malleolar soft tissue edema. IMPRESSION: Lateral malleolar fracture near the level of the distal tibial fibular syndesmosis without evidence of abnormal widening of the ankle mortise. Dictated by: Mich Gordon M.D. on 08/14/2022 at 12:43 Approved by: Mich Gordon M.D. on 08/14/2022 at 12:45
[2022-08-14 12:07] VITALS: BP 146/72; PULSE 79; RESP 16; TEMP 36.8; O2SAT 98; BMI 26.6
== END 2022-08-14 13:30 | disposition home or self-care (01) ==
PROVIDERS: Emergency Provider Physician Assistant Medical; PCP Family Medicine
DX: S82.892A Other fracture of left lower leg, initial encounter for closed fracture (principal); W18.30XA Fall on same level, unspecified, initial encounter
CPT/HCPCS: 29515; 73610; 99283; 99284

== ENCOUNTER 2022-08-23 10:21 | Day surgery (SDC) | payer MEDICARE, OTHER, SELFPAY ==
[2022-08-20 09:47] VITALS: BMI 24.3
[2022-08-23] VITALS (13 sets, daily range): BP systolic 136–154; BP diastolic 64–81; PULSE 71–81; RESP 10–18; TEMP 36.1–36.5; O2SAT 87–98; BMI 24.3
--- NOTE | 2022-08-23 | DI.RAD.S_ITS ---
PROCEDURE: XR ANKLE LT 2V INDICATIONS: LT ANKLE ORIF TECHNIQUE: 2 views of the ankle were acquired. COMPARISON: [facility], CR, XR ANKLE LT MIN 3V, 08/14/2022, 12:02. FINDINGS: Fluoroscopic guidance utilized for and ankle ORIF. Hardware appears unremarkable. IMPRESSION: Fluoroscopic guidance. Dictated by: Marco Antonio De La Garza M.D. on 08/23/2022 at 16:10 Approved by: Marco Antonio De La Garza M.D. on 08/23/2022 at 16:11
[2022-08-23] MEDS: LACTATED RINGERS 1,000 ML 42 ML IV (11:02)
--- NOTE | 2022-08-23 12:23 | PM.PREOP ---
Pre-operative Note Interval Note History & Physical reviewed/Exam performed by Physician: Yes Changes to H&P: No
--- NOTE | 2022-08-23 13:01 | SUR.OPER ---
Supine on padded OR bed, head on pillow, arms secured on padded arm boards at <90 degrees abduction, legs uncrossed, safety belt at thigh, tape over blanket over lower legs.
[2022-08-23] MEDS: BUPIVACAINE 0.5% (PF) 10 ML VIAL 20 ML INJ (13:36)
[2022-08-23] MEDS: hydrOXYzine 50 MG/ML INJ 25 MG IM (14:21)
[2022-08-23] MEDS: OXYCODONE/ACETAMINOPHEN 5/325 TABLET 1 TAB PO (14:21)
[2022-08-23] MEDS: HYDROMORPHONE 2 MG INJ IV ×3 (14:33→14:47)
--- NOTE | 2022-08-23 16:20 | P.OP_ITS ---
Operative Date/Time/Diagnoses Date of procedure: 08/23/22 Time of procedure: 16:20 Pre-op diagnosis: Left bimalleolar equivalent ankle fracture with Henriquez B fibula and syndesmosis disruption Post-op diagnosis: same Procedure & Clinicians Procedure: ORIF left ankle fracture (fibula and syndesmosis) Same procedure as scheduled: Yes Indications: Emiliana is a pleasant 76-year-old female who I saw in clinic for her left Henriquez B fibula fracture. Stress x-rays in clinic demonstrated medial clear space widening. In order to restore stability to the ankle, allow earlier weight- bearing and prevent posttraumatic arthritis, she is indicated for ORIF of her left ankle fracture Surgeon: Christian Magana Click Yes if Unassisted: Yes Anesthesia Type: General Operative Notes Findings: Syndesmosis disruption Henriquez B fibula fracture, spiral Closure Type: primary Specimen(s): none sent Prosthetic devices, grafts, tissues, transplants, or devices: Augustin and Nephew locking fibula plate Augustin and Nephew invisiknot syndesmosis fixation device (tight rope) Estimated Blood Loss (mL): 10 Tourniquet time (min): 45 Procedure in detail: Procedure: The patient was met in the preoperative holding area and we again d iscussed the risks and benefits of surgery. My initials were marked on the correct left lower extremity. The patient was brought back to the operating room and transferred to the operating table. Smooth induction of anesthesia was performed. A time-out was then performed confirming the correct operative extremity with my initials. A tourniquet was applied to the upper thigh. Standard sterile prep was done with chlorhexidine. Appropriate dry time was observed. An Esmarch was used and the tourniquet was inflated to 250 mmHg. A standard lateral approach to the fibula was made using a 10 blade. The superficial peroneal nerve was identified and protected through the remainder of the case. Dissection was carried down to the bone and the fracture was encountered. This was noted to be a oblique fracture starting at the level of the joint. The fracture was irrigated and cleaned using a curette. Two separate 3.5 mm lag screw by technique were put through the oblique fracture. A Augustin and Nephew locking plate was fashioned and placed over the fracture. Proximal nonlocking screws and distal locking screws were placed. Final fluoroscopy confirmed screw length and plate position as well as fracture reduction. Stress radiographs were then performed which demonstrated widening of the medial clear space as well as tilting of the talus. For this reason, a tight rope (Augustin and nephew invisiknot) was placed across the syndesmosis using the hole just proximal to the plafond at the level of the physeal scar. This also provided compression through the plate. Stress radiographs were again performed demonstrating minimal widening of the clear space. Wounds were closed with 2-0 PDS and 2-0 nylon and dressed with Xeroform, 4x4s cast padding and then placed into a well-padded splint the patient awoke from anesthesia and was transported to the postoperative recovery unit without any issues Complications: none Post-operative Condition: stable Disposition: PACU Plan for aftercare: Postoperatively: For syndesmosis injury, I will have her nonweightbearing for 6 weeks followed by weight-bearing as tolerated in a boot. She will be transitioned from her splint to a boot at her 1st postoperative visit.
[2022-08-23] MEDS: ONDANSETRON 4 MG/2 ML INJ IV (17:07)
== END 2022-08-23 17:22 | disposition home or self-care (01) ==
PROVIDERS: PCP Family Medicine; Referring Provider Family Medicine; Visit Provider Orthopaedic Surgery
PROC: (CPT 27792; principal; 2022-08-23 12:00)
DX: S82.62XA Displaced fracture of lateral malleolus of left fibula, initial encounter for closed fracture (principal); S93.492A Sprain of other ligament of left ankle, initial encounter; E78.5 Hyperlipidemia, unspecified; W18.40XA Slipping, tripping and stumbling without falling, unspecified, initial encounter
CPT/HCPCS: 27792; 27829; 73600; 76000; J1100; J1170; J1885; J2405; J2704; J3010; J3410

== ENCOUNTER → 2023-05-27 10:52 | Outpatient (CLI) | payer MEDICARE, OTHER, SELFPAY ==
--- NOTE | 2023-05-27 10:53 | DI.RAD.S_ITS ---
PROCEDURE: XR LUMBAR SPINE MIN 4V INDICATIONS: Low back pain TECHNIQUE: 5 views of the lumbar spine were acquired, including bilateral oblique views. COMPARISON: [facility], , L-SPINE 2-3 VIEWS, 01/10/2015, 12:29. [facility], , L-SPINE 2-3 VIEWS, 10/24/2008, 11:53. FINDINGS: Bones: 5 nonrib-bearing vertebrae are present. Mild levocurvature of the lumbar spine. No vertebral body compression fractures. No suspicious bony lesions. There is multilevel facet arthropathy, worse at L4-5 and L5-S1. Mild multilevel disc height loss with degenerative endplate changes and spurring is present. This is most pronounced at L4-5. Soft tissues: Overlying bowel gas pattern is normal. No suspicious soft tissue calcifications. Oblique images: No pars defects. IMPRESSION: Multilevel degenerative changes of the lumbar spine are progressed compared to prior, most pronounced at L4-5. Dictated by: Alex Graham M.D. on 05/27/2023 at 11:49 Approved by: Alex Graham M.D. on 05/27/2023 at 11:50
--- NOTE | 2023-05-27 10:53 | DI.RAD.S_ITS ---
PROCEDURE: XR HIP W PEL IF DONE DAYLIN MIN 4V INDICATIONS: bilateral hip pain TECHNIQUE: AP pelvis with lateral view(s) of the bilateral hip(s). COMPARISON: None. FINDINGS: Bones: No fractures or dislocations. Moderate degenerative changes of bilateral hips with joint space narrowing and marginal spurring. Degenerative changes of the visualized lower lumbar spine and pubic symphysis. Pelvic ring appears intact. No suspicious bony lesions. Soft tissues: The visualized bowel gas pattern is normal. No suspicious soft tissue calcifications. IMPRESSION: No acute osseous abnormalities. Moderate degenerative changes of the bilateral hips. Dictated by: Alex Graham M.D. on 05/27/2023 at 11:51 Approved by: Alex Graham M.D. on 05/27/2023 at 11:51
== END ==
PROVIDERS: PCP Family Medicine; Referring Provider Physician Assistant; Visit Provider Physician Assistant
DX: M47.816 Spondylosis without myelopathy or radiculopathy, lumbar region (principal); M47.817 Spondylosis without myelopathy or radiculopathy, lumbosacral region; M54.50 Low back pain, unspecified; M25.551 Pain in right hip; M25.552 Pain in left hip
CPT/HCPCS: 72110; 73522

== ENCOUNTER → 2023-08-01 06:38 | Outpatient (CLI) | payer MEDICARE, OTHER, SELFPAY ==
[2023-08-01 08:01] LABS: Add Manual Diff / Slide Review NO; Basophils Absolute Auto 0 /uL (0-100); Eosinophils Absolute Auto 100 /uL (0-450); Eosinophils Percent Auto 2.4 % (2-4); Hematocrit 38.4 % (36-46); Hemoglobin 13.2 g/dL (12.0-16.0); Lymphocytes Absolute Auto 1600 /uL (1100-4500); Lymphocytes Percent Auto 33.1 % (25-40); Mean Corpuscular HGB Conc 34.4 % (30-36); Mean Corpuscular Hemoglobin 32.8 PG (26-34); Mean Corpuscular Volume 95.2 fL (80-100); Monocytes Absolute Auto 400 /uL (0-900); Monocytes Percent Auto 8.3 % (3-14); Neutrophils Absolute Auto 2700 /uL (1500-7000); Neutrophils Percent Auto 55.2 % (50-75); Platelet Count 223 X10^3/uL (150-400); Red Blood Cell Count 4.03 X10^6/uL (4.0-5.2); Red Cell Distribution Width 13.1 % (11.6-14.8); White Blood Cell Count 4.8 X10^3/uL (4.5-11.0)
[2023-08-01 08:23] LABS: Alanine Aminotransferase 15 IU/L (<35); Albumin 4.1 g/dL (3.5-5.0); Albumin Globulin Ratio 1.7 (1.0-2.8); Alkaline Phosphatase 82 U/L (38-126); Aspartate Aminotransferase 29 IU/L (14-36); BUN Creatinine Ratio 24.3 (6-22); Bilirubin Total 0.6 mg/dL (0.2-1.3); Blood Urea Nitrogen 18 mg/dL (7-17); Calcium 9.2 mg/dL (8.4-10.2); Carbon Dioxide 29 mmol/L (22-32); Chloride 106 mmol/L (98-107); Cholesterol 197 mg/dL (140-199); Estimated Glomerular Filt Rate > 60 mL/min (>60); Globulin 2.4 g/dL (1.7-4.1); Glucose 102 mg/dL (80-110); HDL Cholesterol 71 mg/dL (40-60); HEMOLYSIS < 15 (0-50); LDL Cholesterol Calculated 103 mg/dL (<100); Potassium 4.6 mmol/L (3.4-5.1); Sodium 140 mmol/L (137-145); Total Protein 6.5 g/dL (6.3-8.2); Triglycerides 114 mg/dL (35-150)
[2023-08-01 08:48] LABS: TSH w/ Reflex to FT4 1.66 uIU/mL (0.47-4.68)
[2023-08-01 09:08] LABS: Vitamin B12 > 1000 pg/mL (239-931)
== END ==
LOC: LAB 06:38
PROVIDERS: PCP Family Medicine; Referring Provider Family Medicine; Visit Provider Family Medicine
DX: E78.5 Hyperlipidemia, unspecified (principal); G62.9 Polyneuropathy, unspecified; G47.33 Obstructive sleep apnea (adult) (pediatric)
CPT/HCPCS: 36415; 80053; 80061; 82607; 84443; 85025

== ENCOUNTER 2024-07-02 20:03 | Emergency (ER) | payer MEDICARE, OTHER, SELFPAY ==
[2024-07-02] VITALS (9 sets, daily range): BP systolic 121–181; BP diastolic 56–81; PULSE 73–170; RESP 19–23; TEMP 36.4; O2SAT 94–96; BMI 24.7
--- NOTE | 2024-07-02 20:06 | DI.RAD.S_ITS ---
PROCEDURE: XR CHEST 1V INDICATIONS: Chest Pain TECHNIQUE: One view of the chest was acquired. COMPARISON: None. FINDINGS: Surgical changes and devices: None. Lungs and pleura: Lungs are clear. No pleural effusions or pneumothorax. Mediastinum: Mediastinal contours appear normal. Heart size is normal. Bones and chest wall: No suspicious bony lesions. Overlying soft tissues appear unremarkable. IMPRESSION: No acute cardiopulmonary abnormality is seen. Dictated by: Leandro Blanco M.D. on 07/02/2024 at 20:25 Approved by: Leandro Blanco M.D. on 07/02/2024 at 20:26
--- NOTE | 2024-07-02 20:14 | EKG_ITS ---
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
[2024-07-02 20:22] LABS: Add Manual Diff / Slide Review NO; Basophils Absolute Auto 100 /uL (0-100); Basophils Percent Auto 0.8 % (0-2); Eosinophils Absolute Auto 100 /uL (0-450); Eosinophils Percent Auto 1.6 % (2-4); Hematocrit 44.3 % (36-46); Hemoglobin 14.6 g/dL (12.0-16.0); Lymphocytes Absolute Auto 2400 /uL (1100-4500); Lymphocytes Percent Auto 32.9 % (25-40); Mean Corpuscular Hemoglobin 31.8 PG (26-34); Mean Corpuscular Volume 96.4 fL (80-100); Monocytes Absolute Auto 600 /uL (0-900); Monocytes Percent Auto 8.4 % (3-14); Neutrophils Absolute Auto 4100 /uL (1500-7000); Neutrophils Percent Auto 56.3 % (50-75); Platelet Count 271 X10^3/uL (150-400); Red Cell Distribution Width 13.3 % (11.6-14.8); White Blood Cell Count 7.3 X10^3/uL (4.5-11.0)
[2024-07-02] MEDS: ADENOSINE 6 MG/2 ML VIAL IV (20:26)
[2024-07-02 20:29] LABS: INR 0.9 (0.9-1.3); Prothrombin Time 10.6 SECONDS (9.4-12.5)
[2024-07-02 20:32] LABS: PTT Partial Thromboplastin Tim 36 SECONDS (25.1-36.5)
[2024-07-02 20:33] LABS: Lactate (Lactic Acid) 1.9 mmol/L (0.7-2.1)
[2024-07-02 20:34] LABS: Alanine Aminotransferase 24 IU/L (<35); Albumin 4.8 g/dL (3.5-5.0); Albumin Globulin Ratio 1.6 (1.0-2.8); Alkaline Phosphatase 92 U/L (38-126); Aspartate Aminotransferase 37 IU/L (14-36); BUN Creatinine Ratio 27.5 (6-22); Bilirubin Total 0.4 mg/dL (0.2-1.3); Blood Urea Nitrogen 28 mg/dL (7-17); Calcium 9.5 mg/dL (8.4-10.2); Carbon Dioxide 26 mmol/L (22-32); Chloride 104 mmol/L (98-107); Creatine Kinase 191 U/L (30-135); Estimated Glomerular Filt Rate 56 mL/min (>60); Glucose 161 mg/dL (70-99); HEMOLYSIS < 15 (0-50); Lipase 126 U/L (23-300); Potassium 4.1 mmol/L (3.4-5.1); Sodium 139 mmol/L (137-145); Total Protein 7.8 g/dL (6.3-8.2)
[2024-07-02] MEDS: METOPROLOL IR 25 MG TABLET PO (20:36)
--- NOTE | 2024-07-02 20:43 | ED_ITS ---
HPI - Arrhythmia/Palpitations General Chief Complaint: Arrhythmia/Palpitations Stated Complaint: rapid heart rate, not feeling well, sob Time Seen by Provider: 07/02/24 20:14 Source: patient Mode of arrival: Ambulatory History of Present Illness HPI narrative: 78-year-old female felt rapid heart rate sensation and shortness of breath prior to arrival. No chest pain. No fevers or chills. No recent cough symptoms. No previous known problems with fast heart rate, SVT, atrial fibrillation, atrial flutter, ventricular tachycardia. No heart rate or rhythm problems known. Related Data Home Medications Medication Instructions Recorded Confirmed krill 1,000 mg-omega-3 170 mg-dha 1 cap PO DAILY 06/19/21 03/25/24 50 mg-epa 80 te-ijllly-bdili capsule (krill oil) cyclosporine 0.05 % eye drops in a drp EYE-BOTH BID 06/27/22 03/25/24 dropperette fluorouracil 5 % topical cream 1 applic topical BID 06/27/22 03/25/24 triamcinolone acetonide 0.1 % 1 applic topical DAILY PRN dry skin 06/27/22 03/25/24 topical cream montelukast 10 mg tablet 10 mg PO DAILY PRN 03/25/24 03/25/24 Previous Rx's Medication Instructions Recorded fluticasone propionate 50 1 spray intranasal BIDP PRN 12/31/18 mcg/actuation nasal allergy symptoms #54.6 mL spray,suspension (Flonase Allergy Relief) cholecalciferol (vitamin D3) 50 50 mcg PO DAILY #90 caps 11/22/19 mcg (2,000 unit) capsule diphenhydramine 25 2 tab PO BEDTIME PRN sleep #60 tabs 11/22/19 mg-acetaminophen 500 mg tablet (Tylenol PM Extra Strength) ibuprofen 600 mg tablet 600 mg PO Q6H PRN pain #60 tabs 08/23/22 ondansetron HCl 4 mg tablet 4 mg PO Q8H PRN nausea and 08/23/22 vomiting #10 tabs levomefolate Ca 3 mg-B6 35 See Rx Instructions .Route 11/03/23 mg-meB12 2 mg-algal oil 90.314 mg .COMPLEX #180 caps capsule (Metanx (algal oil)) albuterol sulfate 90 mcg/actuation 2 inh inhalation Q6-8H #8.5 grams 03/25/24 aerosol inhaler amoxicillin 875 mg-potassium 1 tab PO BID #14 tabs 03/25/24 clavulanate 125 mg tablet inhalational spacing device #1 ea 03/25/24 (BreatheRite MDI Spacer) acyclovir 400 mg tablet See Rx Instructions .Route 05/17/24 .COMPLEX #90 tabs atorvastatin 20 mg tablet (Lipitor) 20 mg PO BEDTIME #90 tabs 05/20/24 bupropion HCl 300 mg 24 hr tablet, 300 mg PO DAILY #90 tabs 05/20/24 extended release metoprolol succinate 50 mg 50 mg PO DAILY #30 tabs 07/02/24 tablet,extended release 24 hr Allergies Allergy/AdvReac Type Severity Reaction Status Date / Time doxycycline [DOXYCYCLINE] Allergy Unknown Nausea Verified 07/02/24 20:12 OPTHAMIC KAUR SPORAN DROPS Allergy Mild Uncoded 07/02/24 20:12 Patient History Medical History (Updated 07/02/24 @ 22:16 by Jaden Muir MD) History of COVID-19 Osteopenia after menopause Depression Hay fever (~1958) Osteoarthritis (~2009) Shoulder pain (~2008) Lumbar spine pain Fracture (~2004) Foot pain (~2004) Eczema (~1979) Actinic keratosis (~1985) Mumps (~1954) Measles (~1951) Herpes Hepatitis (~1964) Chicken pox (~1949) Recurrent sinusitis (~1989) Hearing loss (~2013) Hyperlipidemia (~2004) Skin cancer (~2004) Neuropathy Obstructive sleep apnea syndrome (08/08/15) Osteoarthritis (11/22/13) Peripheral neuropathy (11/22/13) Hyperlipidemia (11/22/13) Insomnia (01/02/11) Depression (01/02/11) Surgical History (Updated 08/23/22 @ 10:38 by Jovanny Butterfield RN) H/O blepharoplasty Anesthesia Status post hysterectomy with oophorectomy (~1975) Status post tonsillectomy and adenoidectomy (~1966) Family History Brother Age: 77 Neuropathic pain Father Stroke Hyperlipidemia CAD (coronary artery disease) Aortic valve replaced Grandfather Rheumatoid arthritis Mother No problems noted. Social History marital status: household members: friend(s) Smoking Status: Unknown if ever smoked alcohol intake: current Smoking Status: Unknown if ever smoked alcohol intake frequency: holidays/special occasions only Exam Narrative Exam Narrative: GENERAL: Well-developed patient, in mild distress. HEAD: Atraumatic. Normocephalic. EYES: Pupils equal round and reactive. Extraocular motions intact. No scleral icterus. No injection or drainage. ENT: Nose without bleeding, purulent drainage. Throat without erythema, tonsillar hypertrophy or exudate. Airway patent. NECK: Trachea midline. Non tender CARDIOVASCULAR: Fast rate and regular rhythm, without murmurs, gallops, or rubs. RESPIRATORY: Clear to auscultation. Breath sounds equal bilaterally. No wheezes, rales, or rhonchi. GASTROINTESTINAL: Abdomen soft, non-tender, nondistended. EXTREMITIES: No edema or joint tenderness. BACK: Nontender without deformity or crepitance. No flank tenderness. NEURO: AOx3. Motor functions grossly nonfocal. SKIN: No rash or erythema of visible areas Initial Vital Signs Initial Vital Signs: Vital Signs Temperature 97.5 F L 07/02/24 20:04 Pulse Rate 170 H 07/02/24 20:04 Respiratory Rate 22 07/02/24 20:04 Blood Pressure 181/80 H 07/02/24 20:04 Pulse Oximetry 95 07/02/24 20:04 Oxygen Delivery Method Room Air 07/02/24 20:04 Course Orders Ordered: ED Orders 07/03/24 20:06 EKG-12 Lead Routine Discontinued Medications Adenosine (Adenosine 6 Mg/2 Ml Vial) 6 mg IV NOW ONE Stop: 07/02/24 20:17 Last Admin: 07/02/24 20:26 Dose: 6 mg Documented By: NATALI Aspirin (Aspirin 81 Mg Chew Tab) 324 mg PO NOW ONE Stop: 07/02/24 20:07 Last Admin: 07/02/24 20:52 Dose: 324 mg Documented By: NATALI Metoprolol Tartrate (Metoprolol Ir 25 Mg Tablet) 25 mg PO NOW ONE Stop: 07/02/24 20:33 Last Admin: 07/02/24 20:36 Dose: 25 mg Documented By: NATALI Vital Signs Vital signs: Vital Signs - 8 hr 07/02/24 22:00 07/02/24 22:10 07/02/24 22:10 Pulse Rate 76 75 Respiratory Rate 22 Blood Pressure 129/61 Pulse Oximetry 95 94 MDM - Arrhythmia/Palpitations Lab Data Attestation: I reviewed the patient's lab results. Lab results narrative: White blood cell count 7300, hemoglobin 14.6, platelets adequate. Glucose 161. Renal function unremarkable, normal electrolytes, normal serum CO2. Slight ALT elevation otherwise liver functions normal. Magnesium level normal. Troponin measurable low. Lipase normal. 07/02/24 20:16 07/02/24 20:16 Labs: Lab Results 07/02/24 Range/Units 20:16 WBC 7.3 (4.5-11.0) X10^3/uL RBC 4.60 (4.0-5.2) X10^6/uL Hgb 14.6 (12.0-16.0) g/dL Hct 44.3 (36-46) % MCV 96.4 (80-100) fL MCH 31.8 (26-34) PG MCHC 33.0 (30-36) % RDW 13.3 (11.6-14.8) % Plt Count 271 (150-400) X10^3/uL Neut % (Auto) 56.3 (50-75) % Lymph % (Auto) 32.9 (25-40) % [place] % (Auto) 8.4 (3-14) % Eos % (Auto) 1.6 L (2-4) % Baso % (Auto) 0.8 (0-2) % Neut # (Auto) 4100 (3845-4018) /uL Lymph # (Auto) 2400 (7449-5923) /uL [place] # (Auto) 600 (0-900) /uL Eos # (Auto) 100 (0-450) /uL Baso # (Auto) 100 (0-100) /uL PT 10.6 (9.4-12.5) SECONDS INR 0.9 (0.9-1.3) APTT 36 (25.1-36.5) SECONDS Sodium 139 (137-145) mmol/L Potassium 4.1 (3.4-5.1) mmol/L Chloride 104 (98-107) mmol/L Carbon Dioxide 26 (22-32) mmol/L BUN 28 H (7-17) mg/dL Creatinine 1.02 (0.52-1.04) mg/dL Estimated GFR 56 L (>60) mL/min BUN/Creatinine Ratio 27.5 H (6-22) Glucose 161 H (70-99) mg/dL Lactate 1.9 (0.7-2.1) mmol/L Calcium 9.5 (8.4-10.2) mg/dL Magnesium 2.0 (1.6-2.3) mg/dL Total Bilirubin 0.4 (0.2-1.3) mg/dL AST 37 H (14-36) IU/L ALT 24 (<35) IU/L Alkaline Phosphatase 92 (38-126) U/L Total Creatine Kinase 191 H (30-135) U/L Troponin I 0.014 (0.01-0.034) ng/mL NT-Pro-B Natriuret Pep 147 (<450) pg/mL Total Protein 7.8 (6.3-8.2) g/dL Albumin 4.8 (3.5-5.0) g/dL Globulin 3.0 (1.7-4.1) g/dL Albumin/Globulin Ratio 1.6 (1.0-2.8) Lipase 126 (23-300) U/L ECG Data Attestation: I personally reviewed and interpreted this ECG as follows: Interpretation: 2013, wide complex tachycardia with ventricular rate 165, possible lateral ST segment depression changes. QRS 152, QTC 463. 2043, sinus tachycardia with rate of 106, no obvious ST segment elevation or depression changes. T-wave inversion lead 3 noted. MN 206, QRS 82, QTC 459. 2119, normal sinus rhythm with rate of 77, no obvious ST segment elevation or depression changes. T-wave inversion lead 3 upright in other contiguous inferior leads. MN 190, QRS 78, QTC 434. MDM Narrative Medical decision making narrative: 78-year-old female with palpitation fast heart rate sensation. On monitor in presentation she had wide complex tachycardia with rate 160, normotensive, mentating. Trial of the adenosine to look for under lying rhythm, or possible therapeutic cardioversion if PSVT with wide complex, or AFib with wide complex right related or not really related. Electrolytes and troponin negative. IV push single dose adenosine given, patient had conversion to sinus tachycardia initially 120-100 range. Further observed and further improved heart rate, given oral metoprolol dose. Improved heart rate 80s, normotensive. Serial EKGs confirmed sinus tachycardia in the normal sinus rhythm after adenosine dose given. Consistent with PSVT adenosine cardioversion. Discharge on metoprolol XL dose, follow up with Cardiology advised, clinic contact information provided. Home with family. Discharge Plan Departure Patient Disposition: Home Clinical Impression: Supraventricular tachycardia Activity Restrictions/Additional Instructions: Shortness of breath and fast heart rate sensation. Initially on the monitor your heart was going 160 beats per minute, regular but unclear rhythm. You had good blood pressure and seemed to be maintaining normal mental status. IV adenosine was given. You converted to sinus tachycardia from PSVT, and then normalized your heart rate, to normal sinus rhythm. Oral metoprolol medication was given, prescription for further metoprolol to take as an outpatient for now. Blood testing not suggestive of heart attack. Serial EKGs showed conversion to sinus rhythm. Electrolytes unremarkable. Further workup as an outpatient for now. Consider cardiology follow up early next week. Contact information given for local director selection and administration on-call, Dr. Jimenez, his office information provided. Return earlier to this/nearest emergency department for any change worsening symptoms or any concerns prior. Prescriptions: New metoprolol succinate 50 mg tablet extended release 24 hr 50 mg PO DAILY Qty: 30 0RF No Action cyclosporine 0.05 % dropperette EYE-BOTH BID fluorouracil 5 % cream 1 applic topical BID Rx Instructions: apply to hands and arms as needed triamcinolone acetonide 0.1 % cream 1 applic topical DAILY PRN (Reason: dry skin) fluticasone propionate [Flonase Allergy Relief] 50 mcg/actuation spray,suspension 1 spray intranasal BIDP PRN (Reason: allergy symptoms) Qty: 54.6 1RF [id number]-algal oil [Metanx (algal oil)] 3 mg-35 mg-2 mg -90.314 mg capsule See Rx Instructions .ROUTE .COMPLEX Qty: 180 3RF Dose Instruction: TAKE 1 CAPSULE BY MOUTH TWO TIMES A DAY Rx Instructions: TAKE 1 CAPSULE BY MOUTH TWO TIMES A DAY acyclovir 400 mg tablet See Rx Instructions .ROUTE .COMPLEX Qty: 90 3RF Dose Instruction: TAKE 1 TABLET DAILY Rx Instructions: TAKE 1 TABLET DAILY atorvastatin [Lipitor] 20 mg tablet 20 mg PO BEDTIME Qty: 90 3RF bupropion HCl 300 mg tablet extended release 24 hr 300 mg PO DAILY Qty: 90 3RF [id number] [krill oil] 1,333-274-09-80 mg capsule 1 cap PO DAILY Patient Comments: 1600mg daily montelukast 10 mg tablet 10 mg PO DAILY PRN albuterol sulfate 90 mcg/actuation HFA aerosol inhaler 2 inh inhalation Q6-8H Qty: 8.5 1RF Rx Instructions: inhale 2 puffs every 6 to 8 hours as needed for cough (DME) BreatheRite MDI Spacer Spacer See Rx Instructions .Route Qty: 1 0RF Rx Instructions: As directed amoxicillin-pot clavulanate 875-125 mg tablet 1 tab PO BID Qty: 14 0RF diphenhydramine-acetaminophen [Tylenol PM Extra Strength] 25-500 mg tablet 2 tab PO BEDTIME PRN (Reason: sleep) Qty: 60 0RF cholecalciferol (vitamin D3) 50 mcg (2,000 unit) capsule 50 mcg PO DAILY Qty: 90 0RF ondansetron HCl 4 mg tablet 4 mg PO Q8H PRN (Reason: nausea and vomiting) Qty: 10 0RF ibuprofen 600 mg tablet 600 mg PO Q6H PRN (Reason: pain) Qty: 60 0RF Referrals: Enio Manning MD [Primary Care Provider] - Kwasi Jimenez MD [Physician] - Stand Alone Forms: Patient Portal/API/Survey
[2024-07-02 20:46] LABS: NT-proBNP (BNP-Adult 18+) 147 pg/mL (<450); Troponin I 0.014 ng/mL (0.01-0.034)
[2024-07-02] MEDS: ASPIRIN 81 MG CHEW TAB 324 MG PO (20:52)
--- NOTE | 2024-07-03 20:06 | EKG_ITS ---
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
== END 2024-07-02 22:40 | disposition home or self-care (01) ==
PROVIDERS: Emergency Provider Emergency Medicine; PCP Family Medicine
DX: I47.10 Supraventricular tachycardia, unspecified (principal); R06.02 Shortness of breath
CPT/HCPCS: 36415; 71045; 80053; 82550; 83605; 83690; 83735; 83880; 84484; 85025; 85610; 85730; 93005; 93010; 96374; 99284; J0153

== ENCOUNTER → 2024-07-12 07:45 | Outpatient (CLI) | payer MEDICARE, OTHER, SELFPAY ==
[2024-07-12 08:36] LABS: Cholesterol 195 mg/dL (140-199); HDL Cholesterol 73 mg/dL (40-60); LDL Cholesterol Calculated 100 mg/dL (<100); Triglycerides 109 mg/dL (35-150)
[2024-07-12 09:08] LABS: TSH w/ Reflex to FT4 1.81 uIU/mL (0.47-4.68)
== END ==
PROVIDERS: PCP Family Medicine; Referring Provider Physician Assistant; Visit Provider Physician Assistant
DX: E78.5 Hyperlipidemia, unspecified (principal)
CPT/HCPCS: 36415; 80061; 84443